=== PATIENT | female | born 1995 | race American Indian/Alaskan Native ===

== ENCOUNTER 2016-08-24 13:13 | Outpatient (CLI) | payer MEDICAID ==
[2016-08-24 13:52] VITALS: BP 114/63
== END 2016-08-24 15:21 | disposition home or self-care (01) ==
LOC: TRG 13:13
PROVIDERS: ATTEND Obstetrics & Gynecology
DX: O77.9 Labor and delivery complicated by fetal stress, unspecified (principal); O47.9 False labor, unspecified; Z3A.00 Weeks of gestation of pregnancy not specified
CPT/HCPCS: 59025

== ENCOUNTER 2016-08-24 20:47 | Inpatient (IN) | payer MEDICAID ==
[2016-08-24] MEDS ORDERED: STADOL IV PRN (21:09)
[2016-08-24] MEDS ORDERED: SUBLIMAZE IV PRN (21:09)
[2016-08-24] MEDS ORDERED: MINERAL OIL PO PRN (21:09)
[2016-08-24] MEDS ORDERED: XYLOCAINE 2% INFILTRATI ONE (21:09)
[2016-08-24] MEDS ORDERED: NARCAN 0.4 MG/1 ML IV PRN (21:09)
[2016-08-24] MEDS ORDERED: BRETHINE IVP PRN (21:09)
[2016-08-24] MEDS ORDERED: BRETHINE SUB-Q PRN (21:09)
[2016-08-24] MEDS ORDERED: ePHEDrine SULFATE IV PRN ×2 (21:09→22:36)
[2016-08-24] MEDS ORDERED: POLYCILLIN/NS 2 GM/100 ML 2 GM/100 ML BAG IV ONE (21:09)
[2016-08-24] MEDS ORDERED: ZOFRAN IV PRN (21:09)
[2016-08-24 21:35] LABS: Hemoglobin 9.4 gm/dl (10.1-14.3); Mean Corpuscular HGB Conc 32 % (30-34); Mean Corpuscular Volume 79 fl (79-97); Platelet Count 139 K/mm3 (140-440); Red Blood Count 3.66 M/mm3 (3.65-5.03); Red Cell Distribution Width 16.6 % (13.2-15.2); White Blood Count 10.5 K/mm3 (4.5-11.0)
[2016-08-24 21:36] LABS: Mean Corpuscular Hemoglobin 26 pg (28-32)
--- NOTE | 2016-08-24 21:51 | Event Note ---
Date: 08/24/16 Prenatals accessed online, unable to print but documented here: B positive Antibody negative H/H: 10.9/36.3 Pap smear WNL Rubella Immune RPR Non-reactive HIV Non-reactive Hep B surface antigen negative Gonorrhea/Chlamydia negative Quad negative Diabetes screen WNL GBS Negative
--- NOTE | 2016-08-24 21:56 | History and Physical Report ---
History of Present Illness Date of examination: 08/24/16 Date of admission: 08/24/16 20:59 Chief complaint: contractions History of present illness: Pt is a 21 year old female ELIA 08/21/16 at 40w3d who presents with regular contractions and advanced cervical dilation. She denies vaginal bleeding or leakage of fluid. She has had care at [facility]/ [facility] since transfer into care at 33 wks complicated by anemia on iron twice daily , echogenic intracardiac foci on anatomy scan. She is GBS negative. Past History Past Medical History: migraines, hematologic disorders (anemia) Past Surgical History: no surgical history Family/Genetic History: hypertension Social history: no significant social history - Obstetrical History Expected Date of Delivery: 08/21/16 Actual Gestation: 40 Week(s) 3 Day(s) : 2 Para: 1 Hx # Term Pregnancies: 1 Number of Pregnancies: 0 Spontaneous Abortions: 0 Induced : 1 Medications and Allergies Allergies Allergy/AdvReac Type Severity Reaction Status Date / Time No Known Allergies Allergy Verified 05/31/13 15:57 Home Medications Medication Instructions Recorded Confirmed Last Taken Type Ibuprofen [Motrin 600 MG tab] 600 mg PO Q6H #60 tablet 06/01/13 Unknown Rx Active Meds: Active Medications Butorphanol Tartrate (Stadol) 2 mg IV Q2H PRN PRN Reason: Pain , Severe (7-10) Fentanyl (Sublimaze) 100 mcg IV Q2H PRN PRN Reason: Labor Pain Ampicillin Sodium (Polycillin/Ns 1 Gm/50 Ml) 1 gm in 50 mls @ 0 mls/hr IV Q4HR JENNIFER PRN Reason: Protocol Lactated Ringer's (Lactated Ringers) 1,000 mls @ 125 mls/hr IV DIRECT JENNIFER Oxytocin/Sodium Chloride (Pitocin/Ns 20 Unit/1000ml Drip) 20 unit in 1,000 mls @ 125 mls/hr IV DIRECT JENNIFER Oxytocin/Sodium Chloride (Pitocin/Ns 30 Unit/500ml) 30 unit in 500 mls @ 0 mls/ hr IV TITR JENNIFER PRN Reason: Protocol Mineral Oil (Mineral Oil) 30 ml PO QHS PRN PRN Reason: Constipation Naloxone HCl (Narcan 0.4 Mg/1 Ml) 0.1 mg IV Q2MIN PRN PRN Reason: Res Rate </= 8 or 02 SAT < 92% Ondansetron HCl (Zofran) 4 mg IV Q8H PRN PRN Reason: Nausea And Vomiting Review of Systems All systems: negative - Vital Signs Vital signs: Vital Signs Pulse Pulse Ox 103 H 100 08/24/16 21:22 08/24/16 21:22 Temp Pulse Resp BP Pulse Ox 99 H 118/69 0 L 08/24/16 21:47 08/24/16 21:26 08/24/16 21:47 - Physical Exam Breasts: Positive: deferred Cardiovascular: Regular rate Lungs: Positive: Clear to auscultation Abdomen: Positive: soft (gravid ) Uterus: Positive: enlarged (gravid ) Extremities: Positive: normal - Obstetrical FHR: auscultation normal Uterine Contraction Monitor Mode: External Cervical Dilatation: 6 (per RN ) Uterine Contraction Pattern: Regular Uterine Tone Measurement Phase: Resting Uterine Contraction Intensity: Moderate Results Result Diagrams: 08/24/16 21:19 Abnormal lab results 08/24/16 Range/Units 21:19 Hgb 9.4 L (10.1-14.3) gm/dl Hct 29.0 L (30.3-42.9) % MCH 26 L (28-32) pg RDW 16.6 H (13.2-15.2) % Plt Count 139 L (140-440) K/mm3 All other labs normal. Assessment and Plan A: IUP at 40w3d Active labor Thrombocytopenia GBS negative P: Admit to labor and delivery. Routine intrapartum care.
[2016-08-24] MEDS ORDERED: PITOCin/NS 20 UNIT/1000ML DRIP 20 UNIT/1,000 ML BAG IV SCH (22:00)
[2016-08-24] MEDS ORDERED: PITOCin/NS 30 UNIT/500ML 30 UNIT/500 ML BAG IV SCH (22:00)
[2016-08-24] MEDS ORDERED: LACTATED RINGERS 1,000 ML IV SCH (22:00)
[2016-08-24] MEDS ORDERED: NARCAN 2 MG/2 ML IV PRN (22:36)
--- NOTE | 2016-08-24 22:36 | Anesthesia Consultation ---
Anesthesia Consult and Med Hx Date of service: 08/24/16 - Airway Anesthetic Teeth Evaluation: Good ROM Head & Neck: Adequate Mental/Hyoid Distance: Adequate Mallampati Class: Class II Intubation Access Assessment: Good - Pulmonary Exam CTA: Yes - Cardiac Exam Cardiac Exam: No Murmur - Pre-Operative Health Status ASA Pre-Surgery Classification: ASA2 Proposed Anesthetic Plan: Epidural - Pulmonary Hx Asthma: No COPD: No Hx Pneumonia: No - Cardiovascular System Hx Hypertension: No - Central Nervous System Hx Seizures: No Hx Psychiatric Problems: No - Endocrine Hx Renal Disease: No Hx End Stage Renal Disease: No Hx Hypothyroidism: No Hx Hyperthyroidism: No - Hematic Hx Anemia: No Hx Sickle Cell Disease: No - Other Systems Hx Alcohol Use: No
[2016-08-24] MEDS ORDERED: fentaNYL-BUPIV 2 MCG/ML-0.125% 200 MCG/100 ML BAG EPIDURAL SCH (23:00)
--- NOTE | 2016-08-24 23:50 | Event Note ---
Date: 08/24/16 Pt comfortable with epidural. SVE: /-2. AROM- clear fluid. Continue routine intrapartum care. Initiate pitocin augmentation.
[2016-08-25] MEDS ORDERED: TORADOL ONE (00:14)
[2016-08-25] MEDS ORDERED: BRETHINE ONE (00:19)
--- NOTE | 2016-08-25 00:48 | Procedure Note ---
OB Delivery Note - Delivery Date of Delivery: 08/25/16 Surgeon: SHARONA HINDS Estimated blood loss: 300cc - Vaginal Delivery presentation: vertex Delivery position: OA Intrapartum events: mult.variable deceleratio, other(please specify) (tetanic contraction of the uterus after pitocin administration) Delivery induction: none Delivery augmentation: rupture of membranes Delivery monitor: external FHT, external uterine Route of delivery: Delivery placenta: spontaneous Delivery cord: 3 umbilical vessels Episiotomy: none Delivery laceration: none Anesthesia: intravenous, epidural Delivery comments: Patient progressed to complete/complete/+2 and patient delivered a viable female via spontaneous vaginal delivery over intact perineum under epidural anesthesia. Head delivered in PAO position, quickly followed by shoulders and body. was both suctioned at delivery. Cord was clamped and cut and the was given to a nurse in attendance. The placenta delivered spontaneously (3 vessel cord, intact). Immediately after delivery delivery of the placenta and administration of Pitocin, the patient complained of a constant "menstrual cramping". The patient was given Stadol 2 mg, Toradol 30 mg IV, and terbutaline 0.25 mg subcutaneously in an effort to decrease decrease her discomfort. After approximately 15 minutes, the patient's symptoms began to improve. The vagina and perineum were explored. No lacerations were noted. EBL is 300 mL. - A at 1 minute: 8 at 5 minutes: 9 Gender: Female (3300g (7lb 4 oz))
[2016-08-25] MEDS ORDERED: POLYCILLIN/NS 1 GM/50 ML 1 GM/50 ML BAG IV SCH (01:11)
[2016-08-25] MEDS ORDERED: TORADOL IV PRN (02:58)
[2016-08-25] MEDS ORDERED: DULCOLAX PR PRN (02:58)
[2016-08-25] MEDS ORDERED: PHENERGAN PR PRN (02:58)
[2016-08-25] MEDS ORDERED: ZOFRAN IV PRN (02:58)
[2016-08-25] MEDS ORDERED: DERMOPLAST TP PRN (02:58)
[2016-08-25] MEDS ORDERED: BRETHINE SUB-Q ONE (02:58)
[2016-08-25] MEDS ORDERED: SENOKOT S PO SCH (02:58)
[2016-08-25] MEDS ORDERED: PITOCin/NS 20 UNIT/1000ML DRIP 20 UNIT/1,000 ML BAG IV SCH (02:58)
[2016-08-25] MEDS ORDERED: PHENERGAN PO PRN (02:58)
[2016-08-25] MEDS ORDERED: SODIUM CHLORIDE FLUSH SYRINGE 10 ML IV NR (02:58)
[2016-08-25] MEDS ORDERED: BENADRYL PO PRN (02:58)
[2016-08-25] MEDS ORDERED: LANSINOH TP PRN (02:58)
[2016-08-25] MEDS ORDERED: TYLENOL PO PRN (02:58)
[2016-08-25] MEDS ORDERED: MILK OF MAGNESIA PO PRN (02:58)
[2016-08-25] MEDS ORDERED: TUCKS PAD TP PRN (02:58)
[2016-08-25] MEDS: PERCOCET 5/325 PO PRN ×4 (03:18→18:38)
[2016-08-25] MEDS ORDERED: MOTRIN PO PRN (08:29)
[2016-08-25] MEDS: MOTRIN PO SCH ×2 (08:40→15:43)
[2016-08-25] MEDS: FEOSOL PO SCH ×2 (08:44→22:24)
[2016-08-25] MEDS: PRENATAL VITAMIN PO SCH (08:44)
[2016-08-25] MEDS: COLACE PO SCH ×2 (10:00→22:24)
[2016-08-25] MEDS ORDERED: PERCOCET 5/325 PO PRN (16:45)
--- NOTE | 2016-08-25 16:56 | Progress Note ---
Assessment and Plan O: VSS AF PP H/H: pending A: Stable PP Day 1 Afterbirth pains Anemia P: Iron BID Increase frequency of Percocet Subjective - Subjective Date of service: 08/25/16 Patient reports: appetite normal, voiding normally, pain poorly controlled (c/o afterbirth pains), ambulating normally [place]: doing well Objective - Vital Signs Latest vital signs: Vital Signs Temp Pulse Pulse Resp BP BP Pulse Ox 08/25/16 12:44 98.1 F 90 18 106/62 08/25/16 09:02 98.0 F 74 18 110/60 08/25/16 05:35 98.4 F 84 18 112/64 08/25/16 02:50 98.2 F 98 H 18 101/71 08/25/16 01:54 90 109/63 08/25/16 00:46 96 H 101/59 08/25/16 00:31 107 H 121/63 100 08/25/16 00:26 103 H 100 08/25/16 00:21 104 H 100 08/25/16 00:16 106 H 100 08/25/16 00:15 96 H 115/57 08/25/16 00:14 87 124/60 08/25/16 00:11 94 H 100 08/24/16 23:45 93 H 116/72 08/24/16 23:32 84 113/71 08/24/16 23:17 88 111/68 08/24/16 23:09 86 97 08/24/16 23:01 82 115/64 08/24/16 22:45 86 105/60 08/24/16 22:43 79 105/57 08/24/16 22:41 99 H 105/56 08/24/16 22:39 99 H 108/59 08/24/16 22:37 93 H 109/62 08/24/16 22:35 85 108/60 08/24/16 22:34 97 H 112/56 08/24/16 22:29 98 H 110/55 08/24/16 22:27 109 H 125/62 08/24/16 22:25 108 H 129/72 08/24/16 22:23 111 H 117/63 08/24/16 22:17 95 H 100 08/24/16 22:16 39 L 0 L 08/24/16 22:12 99 H 100 08/24/16 22:10 107 H 87 08/24/16 22:07 102 H 100 08/24/16 22:04 74 L 08/24/16 22:02 78 99 08/24/16 21:59 25 L 08/24/16 21:57 90 95 08/24/16 21:54 98.2 F 20 08/24/16 21:53 89 93 08/24/16 21:52 99 H 95 08/24/16 21:47 99 H 0 L 08/24/16 21:42 92 H 100 08/24/16 21:39 103 H 88 08/24/16 21:37 99 H 98 08/24/16 21:33 97 H 93 08/24/16 21:32 102 H 100 08/24/16 21:27 99 H 99 08/24/16 21:26 92 H 118/69 08/24/16 21:22 103 H 100 Intake and Output 08/25/16 08/25/16 08/25/16 06:59 14:59 22:59 Intake Total 1350 720 Output Total 600 Balance 750 720 Intake: IV 1100 Lactated Ringers 1,000 ml 1000 @ 125 mls/hr IV DIRECT JENNIFER Rx#:[id number] POLYCILLIN/NS 2 GM/100 ML 100 2 gm In 100 ml @ 0 mls/ hr IV ONCE ONE Rx#: [id number] Oral 250 480 Intake, Free Water 240 Output: Urine 600 Void 600 Other: Total, Intake Amount 250 120 Total, Output Amount 600 # Voids Void 1 1 Weight 83.915 kg Estimated Blood Loss 300 - Exam Breasts: Present: deferred Lungs: Present: Normal air movement Abdomen: Present: normal appearance, soft, normal bowel sounds. Absent: distention, tenderness Vulva: both: normal Uterus: Present: normal, firm, bogginess, fundal height at umbilicus. Absent: tenderness Extremities: Present: normal. Absent: edema - Labs Labs: Abnormal lab results 08/24/16 Range/Units 21:19 Hgb 9.4 L (10.1-14.3) gm/dl Hct 29.0 L (30.3-42.9) % MCH 26 L (28-32) pg RDW 16.6 H (13.2-15.2) % Plt Count 139 L (140-440) K/mm3
[2016-08-26] MEDS ORDERED: BOOSTRIX IM ONE (06:00)
[2016-08-26] MEDS ORDERED: M-M-R II VACCINE SUB-Q ONE (06:05)
--- NOTE | 2016-08-26 08:54 | Progress Note ---
Assessment and Plan A: PPD#1 s/p at term, Asymptomatic anemia P: Discharge today with follow up in 4 wks. Subjective - Subjective Date of service: 08/26/16 Principal diagnosis: s/p at term Interval history: No overnight events. Pt wants to go home. Patient reports: appetite normal, voiding normally, pain well controlled, ambulating normally, no nauseated [place]: doing well Objective - Vital Signs Latest vital signs: Vital Signs Temp Pulse Resp BP 08/26/16 01:20 98.6 F 87 18 95/53 08/25/16 16:57 98.2 F 86 18 104/60 08/25/16 12:44 98.1 F 90 18 106/62 08/25/16 09:02 98.0 F 74 18 110/60 Intake and Output 08/25/16 08/26/16 08/26/16 22:59 06:59 14:59 Intake Total 360 600 Balance 360 600 Intake: Oral 120 Intake, Free Water 240 600 Other: Total, Intake Amount 120 # Voids Void 1 1 - Exam Breasts: Present: deferred Cardiovascular: Present: Regular rate Lungs: Present: Clear to auscultation Abdomen: Present: soft Uterus: Present: fundal height below umbilicus Extremities: Present: normal
--- NOTE | 2016-08-26 08:57 | Discharge Summary ---
Providers - Providers Date of Admission: 08/24/16 20:59 Date of discharge: 08/26/16 Attending physician: SHARONA HINDS 08/25/16 02:58 Consult to Suspect Artist [CONS] Routine Reason For Exam: assistance with , SNS Primary care physician: SHARONA HINDS Hospitalization Reason for admission: active labor Delivery: Procedure details: Please see delivery note. Episiotomy: none Laceration: none Other procedures: none complications: none Discharge diagnosis: IUP at term delivered baby: female Hospital course: Patient underwent spontaneous vaginal delivery which she tolerated well. Her course was uncomplicated and she met discharge criteria on postoperative day #1. Condition at discharge: Stable Disposition: DISCHARGED TO HOME OR SELFCARE - Discharge Diagnoses (1) Term of female Status: Acute (2) Anemia affecting Status: Acute Plan - Discharge Medications Prescriptions: Ferrous Sulfate [Feosol 325 MG tab] 325 mg PO BID #60 tablet Ibuprofen [Motrin] 800 mg PO Q8HR PRN #30 tablet PRN Reason: Pain oxyCODONE /ACETAMINOPHEN [Percocet 5/325] 2 tab PO Q4HR PRN #30 tab PRN Reason: Pain Vit-Fe Fumar-FA [ Vitamin] 1 tab PO QDAY #30 tablet - Provider Discharge Summary Activity: routine, no sex for 6 weeks, no heavy lifting 4 weeks, no strenuous exercise Diet: routine Instructions: routine Additional instructions: [] Smoking cessation referral if applicable(refer to patient education folder for contact #) [] Refer to [facility]'s [facility] Booklet Call your doctor immediately for: * Fever > 100.5 * Heavy vaginal bleeding ( >1 pad per hour) * Severe persistent headache * Shortness of breath * Reddened, hot, painful area to leg or breast * Drainage or odor from incision. * Keep incision clean and dry at all times and follow doctor's instructions regarding bathing/showering - Follow up plan Follow up: TEENA PARSON CNM [Advanced Practice Nurse] - 09/22/16 ( exam )
[2016-08-26] MEDS: COLACE PO SCH (09:36)
[2016-08-26] MEDS: MOTRIN PO SCH (09:37)
[2016-08-26] MEDS: PRENATAL VITAMIN PO SCH (09:38)
[2016-08-26] MEDS: FEOSOL PO SCH (09:38)
[2016-08-26 13:30] LABS: Basophils % (Auto) 0.5 % (0.0-1.8); Eosinophils % (Auto) 0.6 % (0.0-4.3); Hematocrit 29.5 % (30.3-42.9); Hemoglobin 9.4 gm/dl (10.1-14.3); Mean Corpuscular HGB Conc 32 % (30-34); Mean Corpuscular Volume 79 fl (79-97); Red Blood Count 3.72 M/mm3 (3.65-5.03); Red Cell Distribution Width 16.8 % (13.2-15.2); White Blood Count 10.6 K/mm3 (4.5-11.0)
[2016-08-26 13:42] LABS: Mean Corpuscular Hemoglobin 25 pg (28-32)
[2016-08-26 14:24] VITALS: BP 111/64
[2016-08-26 14:35] LABS: Platelet Count 144 K/mm3 (140-440)
== END 2016-08-26 14:45 | disposition home or self-care (01) | DRG 775 ==
LOC: TRG 20:47 → LD 20:59 → OB 08-25 03:10
PROVIDERS: ADMIT Obstetrics & Gynecology; ATTEND Obstetrics & Gynecology
PROC: 10E0XZZ Delivery of Products of Conception, External Approach (ICD-10-PCS; principal; 2016-08-25)
PROC: 3E0S3CZ (ICD-10-PCS; 2016-08-25)
PROC: 00HU33Z Insertion of Infusion Device into Spinal Canal, Percutaneous Approach (ICD-10-PCS; 2016-08-25)
DX: O99.12 Other diseases of the blood and blood-forming organs and certain disorders involving the immune mechanism complicating childbirth (principal); D69.6 Thrombocytopenia, unspecified; O99.354 Diseases of the nervous system complicating childbirth; O99.02 Anemia complicating childbirth; G43.909 Migraine, unspecified, not intractable, without status migrainosus; O76 Abnormality in fetal heart rate and rhythm complicating labor and delivery; O62.4 Hypertonic, incoordinate, and prolonged uterine contractions; Z3A.40 40 weeks gestation of pregnancy; Z37.0 Single live birth
CPT/HCPCS: 36415; 85025; 85027; 86850; 86900; 86901; 99211; G0463; J0290; J0595; J1885; J2590; J3010; J3105; J7120